=== PATIENT | male | born 1955 | race Caucasian/White ===

== ENCOUNTER 2018-09-30 10:45 | Inpatient (IN) | payer BC, SELFPAY ==
[2018-09-30] MEDS ORDERED: cefTRIAXone\\ROCEPHIN 1 GM VIAL ONE (11:22)
[2018-09-30] MEDS ORDERED: Sodium Chloride 0.9% 100 ML ONE (11:23)
[2018-09-30 11:34] LABS: Bilirubin Negative (Negative); Blood, Urine Moderate (Negative); Clarity CLOUDY (Clear); Glucose, Urine (Dipstick) Negative (Negative); Leukocyte Large (Negative); Nitrite Negative (Negative); Protein, Urine (Dipstick) 30 mg/dL (Neg-Trace); Specific Gravity, Urine 1.011 (1.002-1.036); Urobilinogen 0.2 mg/dL (0.2-1.0); pH, Urine 5.5 (5.0-9.0)
[2018-09-30 11:35] LABS: Bacteria/HPF None Seen HPF (None Seen); Hyaline Casts/LPF 0-3 HYALINE CAST LPF (0-3 Hyaline); Pathc Cast-AUWi Flag 0.87 (0-2.49); Squamous Epithelial 0-3 HPF (0-3)
[2018-09-30 11:44] LABS: Band 9 % (5-11); Hemoglobin 15.1 g/dL (14.0-18.0); Lymphocytes 7 % (21-51); MDiff Complete? YES; Mean Corpuscular HGB CONC 33.5 g/dL (32.0-36.0); Mean Corpuscular Hemoglobin 32.9 pg (27.0-31.0); Mean Corpuscular Volume 98.1 fL (78.0-98.0); Mean Platelet Volume 6.5 fL (7.4-10.4); Monocytes 4 % (0-10); Neutrophil 80 % (42-75); Platelet Count 361 thou/uL (130-400); RBC Distribution Width 12.1 % (11.5-14.5); White Blood Cell (WBC) Count 19.3 thou/uL (4.8-10.8)
[2018-09-30 11:50] LABS: ALT (SGPT) 38 U/L (8-55); AST (SGOT) 35 U/L (5-34); Albumin 3.9 g/dL (3.4-4.8); Alkaline Phosphatase 98 U/L (40-150); Anion Gap 16 mmol/L (10-20); BUN (Urea Nitrogen) 13 mg/dL (8.4-25.7); Bilirubin, Total 0.9 mg/dL (0.2-1.2); Calc. Creatinine Clearance 0 mL/min (70-130); Calcium 9.6 mg/dL (7.8-10.44); Carbon Dioxide 25 mmol/L (23-31); Chloride 96 mmol/L (98-107); Estimated GFR-MDRD 63; Globulin 3.6 g/dL (2.4-3.5); Glucose 145 mg/dL (80-115); Potassium 3.7 mmol/L (3.5-5.1); Protein, Total 7.5 g/dL (5.8-8.1); Sodium 133 mmol/L (136-145)
[2018-09-30] MEDS ORDERED: Senokot S 8.6-50 MG TAB PO PRN (12:50)
[2018-09-30] MEDS ORDERED: Ondansetron PF 4 MG/2 ML Vial IVP PRN (12:50)
[2018-09-30] MEDS ORDERED: Promethazine HCl 25 MG/ML VIAL IM/IV PRN (12:50)
[2018-09-30] MEDS ORDERED: Guaifenesin DM 100-10/5 ML UDCUP PO PRN (12:50)
--- NOTE | 2018-09-30 14:02 | CT ---
CT ABDOMEN AND PELVIS WITHOUT CONTRAST: Date: 09/30/18 PROVIDED CLINICAL HISTORY: Dysuria. FINDINGS: The visualized lung bases are free of significant opacity. Small gallstones are seen. There is a tiny, nonobstructing calculus present within each kidney. No additional urinary tract calc mary are evident. No evidence for hydronephrosis or hydroureter. There is bilateral perinephric fat st randing, as well as stranding about portions of each ureter. The urinary bladder is decompressed, tho ugh the urinary bladder wall appears somewhat thickened and there is subtle fat stranding about the u rinary bladder. The solid abdominal organs are suboptimally evaluated in the absence of IV contrast material, but dem onstrate an otherwise unremarkable unenhanced CT appearance. There is no bowel dilatation, additional inflammatory fat stranding, free fluid, or free air apparent . The osseous structures demonstrate no concerning osteoblastic or osteolytic lesions. IMPRESSION: 1. Bilateral perinephric fat stranding, periureteral fat stranding, and fat stranding about the urin dori bladder. Findings are suspicious for urinary tract infection and possibly pyelonephritis. 2. Tiny, nonobstructing renal calculi. 3. Cholelithiasis. POS: CLARKE
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
[2018-09-30 15:23] VITALS: BMI 30.9
[2018-09-30] MEDS: Acetaminophen 325 MG TAB PO PRN ×2 (15:32→20:18)
[2018-09-30] MEDS: Sodium Chloride 0.9% 1,000 ML IV SCH (15:34)
[2018-09-30] MEDS ORDERED: Vancomycin HCl 750 MG in Sodium Chloride 0.9% 250 ML 250 ML IVPB SCH (15:45)
[2018-09-30 17:10] LABS: Lactic Acid 2.1 mmol/L (0.5-2.2)
[2018-09-30] MEDS: Famotidine 20 MG TAB PO SCH (20:18)
[2018-09-30] MEDS ORDERED: Vancomycin HCl 1 GM in Sodium Chloride 0.9% 250 ML 300 ML IVPB SCH (21:00)
[2018-10-01] MEDS: Sodium Chloride 0.9% 1,000 ML IV SCH ×3 (00:21→19:54)
[2018-10-01] MEDS: Acetaminophen 325 MG TAB PO PRN ×5 (00:24→17:08)
[2018-10-01] MEDS ORDERED: Vancomycin HCl 1.75 GM in Sodium Chloride 0.9% 500 ML IVPB SCH (02:00)
[2018-10-01 04:24] LABS: #Lymphocytes 1.1 thou/uL (1.20-3.40); %Basophils 0.1 % (0.0-1.0); %Eosinophils 0.3 % (0.0-10.0); %Lymphocytes 8.9 % (21.0-51.0); %Neutrophils 82.7 % (42.0-75.0); Hemoglobin 12.1 g/dL (14.0-18.0); Mean Corpuscular HGB CONC 32.9 g/dL (32.0-36.0); Mean Corpuscular Hemoglobin 32.5 pg (27.0-31.0); Mean Corpuscular Volume 98.9 fL (78.0-98.0); Mean Platelet Volume 6.8 fL (7.4-10.4); Platelet Count 296 thou/uL (130-400); Red Blood Cell (RBC) Count 3.73 mill/uL (4.70-6.10)
[2018-10-01 04:31] LABS: Anion Gap 10 mmol/L (10-20); BUN (Urea Nitrogen) 11 mg/dL (8.4-25.7); Calc. Creatinine Clearance 129 mL/min (70-130); Calcium 8.3 mg/dL (7.8-10.44); Carbon Dioxide 27 mmol/L (23-31); Chloride 103 mmol/L (98-107); Estimated GFR-MDRD 83; Glucose 123 mg/dL (80-115); Potassium 3.7 mmol/L (3.5-5.1); Sodium 136 mmol/L (136-145)
[2018-10-01] MEDS: Famotidine 20 MG TAB PO SCH ×2 (08:07→19:52)
[2018-10-01] MEDS: Enoxaparin Sodium 40 MG/0.4 ML SYRINGE SC SCH (08:12)
--- NOTE | 2018-10-01 10:40 | PDOC.PN ---
- Subjective Encounter Start Date: 10/01/18 Encounter Start Time: 10:40 Subjective: had fever of 102 last night -: no sob or abd pain -: is able to void well per patient - Objective Resuscitation Status: Resuscitation Status FULL:Full Resuscitation MAR Reviewed: Yes Vital Signs & Weight: Vital Signs (12 hours) Temp Pulse Resp BP Pulse Ox 10/01/18 07:34 101.2 F H 61 20 134/77 91 L 10/01/18 05:08 99.6 F 10/01/18 02:52 99.4 F 10/01/18 00:00 102.7 F H 74 18 145/75 H Weight Weight 241 lb 6 oz I&O: 09/30/18 10/01/18 10/02/18 06:59 06:59 06:59 Intake Total 1850 Balance 1850 Result Diagrams: 10/01/18 03:51 10/01/18 03:51 Phys Exam - Physical Examination HEENT: PERRLA, moist MMs Neck: no JVD, supple Respiratory: no wheezing, no rales Cardiovascular: RRR, no significant murmur Gastrointestinal: soft, non-tender, positive bowel sounds Musculoskeletal: no edema, pulses present Neurological: non-focal, moves all 4 limbs Psychiatric: normal affect, A&O x 3 Dx/Plan (1) Bacteremia due to Escherichia coli Code(s): R78.81 - BACTEREMIA Status: Acute (2) Sepsis Code(s): A41.9 - SEPSIS, UNSPECIFIED ORGANISM Status: Acute Qualifiers: Sepsis type: Escherichia coli Qualified Code(s): A41.51 - Sepsis due to Escherichia coli [E. coli] (3) UTI (urinary tract infection) Status: Acute Qualifiers: Urinary tract infection type: acute cystitis Hematuria presence: without hematuria Qualified Code(s): N30.00 - Acute cystitis without hematuria (4) BPH (benign prostatic hyperplasia) Code(s): N40.0 - BENIGN PROSTATIC HYPERPLASIA WITHOUT LOWER URINRY TRACT SYMP Status: Suspected Qualifiers: Lower urinary tract symptom presence: symptoms present Lower urinary tract symptom detail: urinary frequency Qualified Code(s): N40.1 - Benign prostatic hyperplasia with lower urinary tract symptoms; R35.0 - Frequency of micturition (5) HTN (hypertension) Code(s): I10 - ESSENTIAL (PRIMARY) HYPERTENSION Status: Chronic Qualifiers: Hypertension type: essential hypertension Qualified Code(s): I10 - Essential (primary) hypertension - Plan await full sensitivities of cultures -: on ceftiaxone, dc vanc -: tmax of 102 last 24hrs -: likely has obstru uropathy from bph, psa is high normal -: continue iv fluids, echo and ekg * . Review of Systems - Medications/Allergies Allergies/Adverse Reactions: Allergies Allergy/AdvReac Type Severity Reaction Status Date / Time No Known Allergies Allergy Unverified 09/30/18 13:05 Medications: Current Medications Acetaminophen (Tylenol) 650 mg PO Q4H PRN PRN Reason: Headache/Fever/Mild Pain (1-3) Last Admin: 10/01/18 09:39 Dose: 650 mg Hydrocodone Bitart/Acetaminophen ([place] 5/325) 1 tab PO Q4H PRN PRN Reason: Moderate Pain (4-6) Enoxaparin Sodium (Lovenox) 40 mg SC 0900 [facility] Last Admin: 10/01/18 08:12 Dose: Not Given Famotidine (Pepcid) 20 mg PO BID [facility] Last Admin: 10/01/18 08:07 Dose: 20 mg Guaifenesin/Dextromethorphan (Robitussin Dm) 15 ml PO Q4H PRN PRN Reason: Cough Ceftriaxone Sodium 2 gm/ (Sodium Chloride) 100 mls @ 200 mls/hr IVPB 1200 CARL Sodium Chloride (Normal Saline 0.9%) 1,000 mls @ 100 mls/hr IV .Q10H [facility] Last Admin: 10/01/18 08:12 Dose: Not Given Miscellaneous Medication (Pharmacy To Dose) 1 each IVPB PRN PRN PRN Reason: . Ondansetron HCl (Zofran) 4 mg IVP Q6H PRN PRN Reason: Nausea/Vomiting Promethazine HCl (Phenergan) 25 mg IM/IV Q6H PRN PRN Reason: chills Senna/Docusate Sodium (Senokot S) 2 tab PO BID PRN PRN Reason: Constipation
[2018-10-01] MEDS: cefTRIAXone\\ROCEPHIN 2 GM in Sodium Chloride 0.9% 100 ML IVPB SCH (11:02)
[2018-10-01] MEDS: HYDROcodone/Acetaminophen 5/325 mg Tablet PO PRN (19:52)
[2018-10-02] MEDS: HYDROcodone/Acetaminophen 5/325 mg Tablet PO PRN ×3 (00:31→11:13)
[2018-10-02] MEDS: Sodium Chloride 0.9% 1,000 ML IV SCH ×2 (00:34→05:30)
--- NOTE | 2018-10-02 03:29 | CON ---
DATE OF CONSULTATION: 10/01/2018 CHIEF COMPLAINT: Difficulty voiding, dysuria. HISTORY OF PRESENT ILLNESS: Mr. Wild was admitted to [facility] on 09/30/2018. He is a 63-year-old gentleman who presents with a 2-week history of intermittent fevers and chills. He has had progressive difficulty voiding with dysuria. He has since been admitted to the hospital, treated with IV antibiotics, and improved significantly. Urine culture has been obtained and demons trates E. coli, although the resistance pattern has not been determined yet. The patient denies any prior urologic problems. He has no prior urologic surgery. He feels significantly better than he di d when he was admitted. CT scan has been performed and demonstrates inflammatory changes along the u rinary tract in both the right and left side and a thickened bladder wall without any evidence of inc reased postvoid residual. PAST MEDICAL HISTORY: Hypertension. CHRONIC MEDICATIONS: Lisinopril, Lasix. ALLERGIES: No known drug allergies. SOCIAL HISTORY: Nonsmoker. Denies excessive alcohol use. FAMILY HISTORY: Noncontributory. REVIEW OF SYSTEMS: Respiratory: No shortness of breath. Cardiovascular: No chest pain or palpitat ions. Gastrointestinal: Denies chronic constipation, diarrhea. Genitourinary: Please see history of present illness. PHYSICAL EXAMINATION: GENERAL: This is a healthy appearing gentleman in no distress. HEENT: Normocephalic, atraumatic. NECK: Supple without masses. CHEST: Clear to auscultation. CARDIOVASCULAR: Regular rate and rhythm. ABDOMEN: Soft, nontender, no palpable masses. Liver and spleen are palpable. No abdominal tenderne ss. LABORATORY STUDIES: Urine culture final results pending consistent with E. coli. CT scan demonstrat es inflammatory changes without evidence of upper urinary tract obstruction. He does have a thickene d bladder wall without large postvoid residual. IMPRESSION: Prostatitis, most likely diagnosis. The patient seems to be emptying his bladder determined by his CT scan. There is no evidence of obstruction. As such, I would recommend a 6-week course of oral antibiotics based on his culture results. PSA result was obtained and is normal at 3 .46. No evidence of prostate cancer.
[2018-10-02] MEDS: Enoxaparin Sodium 40 MG/0.4 ML SYRINGE SC SCH (07:21)
[2018-10-02] MEDS: Famotidine 20 MG TAB PO SCH (07:21)
[2018-10-02] MEDS ORDERED: Sodium Chloride 0.9% 1,000 ML IV SCH (08:15)
--- NOTE | 2018-10-02 08:50 | EKG ---
Test Reason : Blood Pressure : / mmHG Vent. Rate : 063 BPM Atrial Rate : 063 BPM P-R Int : 136 ms QRS Dur : 110 ms QT Int : 434 ms P-R-T Axes : 020 021 035 degrees QTc Int : 444 ms Normal sinus rhythm Normal ECG 30-SEP-2018 11:11, (Unconfirmed) Confirmed by DR. Larisa BERNAL ([id number]) on 10/02/2018 8:50:06 AM Referred By: GABY Confirmed By:DR. Larisa BERNAL
[2018-10-02] MEDS: cefTRIAXone\\ROCEPHIN 2 GM in Sodium Chloride 0.9% 100 ML IVPB SCH (11:08)
[2018-10-02 12:10] VITALS: BP 154/82; TEMP 100
--- NOTE | 2018-10-02 13:09 | PDOC.PN ---
- Subjective Encounter Start Date: 10/02/18 Encounter Start Time: 13:07 - Objective Resuscitation Status: Resuscitation Status FULL:Full Resuscitation Vital Signs & Weight: Vital Signs (12 hours) Temp Pulse Resp BP Pulse Ox 10/02/18 12:09 100.0 F H 58 L 20 154/82 H 93 L 10/02/18 07:32 99.3 F 61 18 148/88 H 95 10/02/18 04:00 98.8 F 61 20 146/83 H 92 L Weight Weight 241 lb 6 oz I&O: 10/01/18 10/02/18 10/03/18 06:59 06:59 06:59 Intake Total 1850 1300 Balance 1850 1300 Result Diagrams: 10/01/18 03:51 10/01/18 03:51 Dx/Plan (1) Sepsis Code(s): A41.9 - SEPSIS, UNSPECIFIED ORGANISM Status: Acute Qualifiers: Sepsis type: Escherichia coli Qualified Code(s): A41.51 - Sepsis due to Escherichia coli [E. coli] Comment: Pansensitive ecoli, except Ampicillin. Responding well to Ceftrioxone (2) Bacteremia due to Escherichia coli Code(s): R78.81 - BACTEREMIA Status: Acute (3) UTI (urinary tract infection) Status: Acute Qualifiers: Urinary tract infection type: acute cystitis Hematuria presence: without hematuria Qualified Code(s): N30.00 - Acute cystitis without hematuria (4) HTN (hypertension) Code(s): I10 - ESSENTIAL (PRIMARY) HYPERTENSION Status: Chronic Qualifiers: Hypertension type: essential hypertension Qualified Code(s): I10 - Essential (primary) hypertension - Plan cont current plan of care, plan discussed w/ family, DVT proph w/lovenox, DVT proph w/SCDs * .
== END 2018-10-02 16:11 | disposition home or self-care (01) | DRG 872 ==
LOC: ERS 10:45 → T4-A 14:10
PROVIDERS: ADMIT Internal Medicine; ATTEND Internal Medicine
DX: A41.51 Sepsis due to Escherichia coli [E. coli] (principal); N30.00 Acute cystitis without hematuria; N41.9 Inflammatory disease of prostate, unspecified; I10 Essential (primary) hypertension; R94.31 Abnormal electrocardiogram [ECG] [EKG]; N40.1 Benign prostatic hyperplasia with lower urinary tract symptoms; R35.0 Frequency of micturition; Z79.899 Other long term (current) drug therapy
CPT/HCPCS: 36415; 74176; 80048; 80053; 81003; 81015; 82533; 83605; 84153; 85025; 87040; 87077; 87086; 87149; 87186; 93005; 93010; 93306; 96361; 96365; J0696; J1650; J3370; J7050

== ENCOUNTER 2021-03-27 08:25 | Inpatient (IN) | payer MEDICARE, OTHER ==
[2021-03-27] MEDS ORDERED: Aspirin Chewable 81 MG TAB ONE (08:50)
[2021-03-27 09:00] LABS: #Basophils 0.1 thou/uL (0.0-0.2); #Eosinphils 0.1 thou/uL (0.0-0.7); #Lymphocytes 1.6 thou/uL (1.20-3.40); #Monocytes 0.5 thou/uL (0.11-0.59); #Neutrophils 4.5 thou/uL (1.40-6.50); %Basophils 0.8 % (0.0-1.0); %Eosinophils 1.5 % (0.0-10.0); %Monocytes 7.6 % (0.0-10.0); %Neutrophils 66.2 % (42.0-75.0); Mean Corpuscular HGB CONC 32.4 g/dL (32.0-36.0); Mean Corpuscular Hemoglobin 31.3 pg (27.0-31.0); Mean Corpuscular Volume 96.3 fL (78.0-98.0); Mean Platelet Volume 7.7 fL (7.4-10.4); Platelet Count 217 thou/uL (130-400); RBC Distribution Width 12.8 % (11.5-14.5); Red Blood Cell (RBC) Count 4.47 mill/uL (4.70-6.10); White Blood Cell (WBC) Count 6.8 thou/uL (4.8-10.8)
[2021-03-27 09:22] LABS: ALT (SGPT) 24 U/L (8-55); AST (SGOT) 28 U/L (5-34); Albumin 4.1 g/dL (3.4-4.8); Alkaline Phosphatase 48 U/L (40-110); Anion Gap 15 mmol/L (10-20); BUN (Urea Nitrogen) 11 mg/dL (8.4-25.7); Calc. Creatinine Clearance 0 mL/min (70-130); Calcium 9.6 mg/dL (7.8-10.44); Carbon Dioxide 21 mmol/L (23-31); Chloride 103 mmol/L (98-107); Globulin 2.4 g/dL (2.4-3.5); Glucose 104 mg/dL (80-115); Lipase 16 U/L (8-78); Protein, Total 6.5 g/dL (5.8-8.1); Sodium 135 mmol/L (136-145)
[2021-03-27 09:51] LABS: CKMB 2.1 ng/mL (0-6.6)
[2021-03-27] MEDS ORDERED: Diltiazem 125 MG/25 ML ONE (10:51)
[2021-03-27] MEDS ORDERED: HYDROcodone/Acetaminophen 5/325 mg Tablet PO PRN (11:55)
[2021-03-27] MEDS ORDERED: Acetaminophen 325 MG TAB PO PRN (11:55)
[2021-03-27] MEDS ORDERED: Senokot S 8.6-50 MG TAB PO PRN (11:55)
[2021-03-27 12:09] LABS: Troponin I 0.037 ng/mL (< 0.028)
[2021-03-27 13:23] VITALS: BMI 34.4
[2021-03-27] MEDS: Furosemide 40 MG/4 ML VIAL SLOW IVP SCH (14:24)
[2021-03-27] MEDS: Diltiazem 125 MG in Sodium Chloride 0.9% 100 ML IVPB SCH (16:59)
[2021-03-27] MEDS ORDERED: Carvedilol 6.25 MG TAB PO SCH (17:00)
[2021-03-27] MEDS: Enoxaparin Sodium 120 MG/0.8 ML SYRINGE SC SCH (21:01)
[2021-03-27] MEDS ORDERED: Sodium Chloride 0.9% 500 ML IVPB SCH (22:30)
[2021-03-27] MEDS: Digoxin 0.5 MG/2 ML AMP SLOW IVP SCH (22:30)
[2021-03-28 00:26] LABS: SARS-CoV-2 PCR NAA for Saliva Not Detected (NotDetected)
[2021-03-28 04:35] LABS: #Eosinphils 0.2 thou/uL (0.0-0.7); #Lymphocytes 1.7 thou/uL (1.20-3.40); #Monocytes 0.6 thou/uL (0.11-0.59); #Neutrophils 3.8 thou/uL (1.40-6.50); %Basophils 0.6 % (0.0-1.0); %Lymphocytes 26.8 % (21.0-51.0); %Monocytes 9.9 % (0.0-10.0); %Neutrophils 59.7 % (42.0-75.0); Hemoglobin 13.7 g/dL (14.0-18.0); Mean Corpuscular HGB CONC 32.2 g/dL (32.0-36.0); Mean Corpuscular Hemoglobin 31.2 pg (27.0-31.0); Mean Corpuscular Volume 96.9 fL (78.0-98.0); Platelet Count 147 thou/uL (130-400); White Blood Cell (WBC) Count 6.4 thou/uL (4.8-10.8)
[2021-03-28] MEDS: Furosemide 40 MG/4 ML VIAL SLOW IVP SCH ×2 (04:56→13:28)
[2021-03-28] MEDS: Digoxin 0.5 MG/2 ML AMP SLOW IVP SCH ×2 (04:56→11:39)
[2021-03-28 05:05] LABS: Anion Gap 13 mmol/L (10-20); BUN (Urea Nitrogen) 13 mg/dL (8.4-25.7); Calc. Creatinine Clearance 143 mL/min (70-130); Calcium 9.6 mg/dL (7.8-10.44); Carbon Dioxide 26 mmol/L (23-31); Chloride 104 mmol/L (98-107); Glucose 98 mg/dL (80-115); Potassium 3.3 mmol/L (3.5-5.1); Sodium 140 mmol/L (136-145)
[2021-03-28] MEDS: Aspirin Chewable 81 MG TAB PO SCH (09:18)
[2021-03-28] MEDS: Enoxaparin Sodium 120 MG/0.8 ML SYRINGE SC SCH ×2 (09:19→21:08)
[2021-03-28] MEDS: Carvedilol 6.25 MG TAB PO SCH ×3 (09:19→21:08)
[2021-03-28 11:40] LABS: SARS-CoV-2 IgG Ab Non-Reactive (NonReactive); SARS-CoV-2 IgG Index 0.02 S/CO (< 1.40)
[2021-03-28] MEDS: Diltiazem 125 MG in Sodium Chloride 0.9% 100 ML IVPB SCH (22:00)
[2021-03-29] MEDS: Furosemide 40 MG/4 ML VIAL SLOW IVP SCH ×2 (05:47→15:13)
[2021-03-29] MEDS ORDERED: Diltiazem 125 MG in Sodium Chloride 0.9% 100 ML IVPB SCH (05:58)
[2021-03-29] MEDS ORDERED: Communication Order-Pharmacy FS SCH (06:30)
[2021-03-29] MEDS: Amiodarone 200 MG TAB PO SCH ×2 (08:24→20:18)
[2021-03-29] MEDS: Carvedilol 6.25 MG TAB PO SCH ×2 (08:24→20:18)
[2021-03-29] MEDS: Aspirin Chewable 81 MG TAB PO SCH (08:25)
[2021-03-29] MEDS: Digoxin 0.25 MG TAB PO SCH (08:25)
[2021-03-29] MEDS ORDERED: Iopamidol 370 76% 100 ML VIAL ONE (08:49)
[2021-03-29] MEDS ORDERED: Lidocaine 1% (PF) 30 ML VIAL ONE (11:15)
[2021-03-29] MEDS ORDERED: Nitroglycerin 100MG/250ML BOT 250 ML ONE (11:46)
[2021-03-29] MEDS ORDERED: Heparin 10,000 UNITS/ 10 ML VIAL ONE (11:46)
[2021-03-29] MEDS ORDERED: Verapamil 5 MG/2 ML VIAL ONE (11:46)
[2021-03-29] MEDS ORDERED: Midazolam HCl 2 mg/2 ml Vial ONE (11:50)
[2021-03-29] MEDS ORDERED: Fentanyl 100 MCG/2 ML VIAL ONE (11:50)
[2021-03-29] MEDS ORDERED: Adenosine 6 MG/2 ML VIAL ONE (12:12)
[2021-03-30] MEDS: Furosemide 40 MG/4 ML VIAL SLOW IVP SCH ×2 (05:24→15:55)
[2021-03-30] MEDS ORDERED: Diltiazem 125 MG in Sodium Chloride 0.9% 100 ML IVPB SCH (07:11)
[2021-03-30] MEDS ORDERED: Rivaroxaban 10 MG TAB PO SCH (09:00)
[2021-03-30] MEDS: Carvedilol 6.25 MG TAB PO SCH (09:04)
[2021-03-30] MEDS: Amiodarone 200 MG TAB PO SCH (09:04)
[2021-03-30] MEDS: Digoxin 0.25 MG TAB PO SCH (09:04)
[2021-03-30 16:53] VITALS: BP 115/79; TEMP 98.6
== END 2021-03-30 17:43 | disposition home or self-care (01) | DRG 286 ==
LOC: ERS 08:25 → ERHOLD 11:22 → 2NO 13:11 → OBSVTOIN 15:20
PROVIDERS: ADMIT Family Medicine; ATTEND Internal Medicine
PROC: 4A023N7 Measurement of Cardiac Sampling and Pressure, Left Heart, Percutaneous Approach (ICD-10-PCS; principal; 2021-03-29)
PROC: B2111ZZ Fluoroscopy of Multiple Coronary Arteries using Low Osmolar Contrast (ICD-10-PCS; 2021-03-29)
DX: I48.19 Other persistent atrial fibrillation (principal); I50.21 Acute systolic (congestive) heart failure; K21.9 Gastro-esophageal reflux disease without esophagitis; I11.0 Hypertensive heart disease with heart failure; N40.1 Benign prostatic hyperplasia with lower urinary tract symptoms; I42.9 Cardiomyopathy, unspecified; R94.31 Abnormal electrocardiogram [ECG] [EKG]; R35.0 Frequency of micturition; Z20.822 Contact with and (suspected) exposure to COVID-19; Z86.16 Personal history of COVID-19; Z98.890 Other specified postprocedural states
CPT/HCPCS: 36415; 71045; 76942; 80048; 80053; 82553; 83690; 83880; 84443; 84484; 85025; 86769; 87635; 93005; 93306; 93458; 93798; 94760; 96374; 96375; 96376; 99152; 99153; G0378; J0153; J1160; J1644; J1650; J1940; J2001; J2250; J3010; J3490; J7030; Q9967; U0003; U0005

== ENCOUNTER 2021-05-04 11:33 | Outpatient (CLI) | payer MEDICARE ==
[2021-05-04 12:43] LABS: #Basophils 0.1 10x3/uL (0.0-0.2); #Eosinphils 0.2 10x3/uL (0.0-0.5); #Monocytes 0.6 10x3/uL (0.0-1.1); #Neutrophils 4.2 10x3/uL (1.5-8.4); %Basophils 0.8 % (0.0-2.0); %Eosinophils 2.6 % (0.0-6.0); %Lymphocytes 24.2 % (18.0-47.0); %Monocytes 9.2 % (0.0-10.0); %Neutrophils 62.7 % (40.0-75.0); Hemoglobin 15.3 g/dL (13.5-17.5); Mean Corpuscular HGB CONC 34.5 g/dL (32.0-36.0); Mean Corpuscular Hemoglobin 31.2 pg (27.0-33.0); Mean Corpuscular Volume 90.4 fl (81.2-95.1); Platelet Count 194 10x3/uL (150-450); RBC Distribution Width 14.6 % (11.5-14.5); White Blood Cell (WBC) Count 6.6 10x3/uL (3.5-10.5)
[2021-05-04 13:50] LABS: Anion Gap 15 mmol/L (10-20); BUN (Urea Nitrogen) 9 mg/dL (8.4-25.7); Calc. Creatinine Clearance 0 mL/min (70-130); Calcium 9.6 mg/dL (7.8-10.44); Carbon Dioxide 22 mmol/L (23-31); Chloride 108 mmol/L (98-107); Glucose 136 mg/dL (80-115); Potassium 4.4 mmol/L (3.5-5.1); Sodium 141 mmol/L (136-145)
[2021-05-04 19:32] LABS: SARS-CoV-2 PCR by NAA Not Detected (NotDetected)
== END 2021-05-04 11:34 | disposition home or self-care (01) ==
LOC: LABBT 11:33
PROVIDERS: ATTEND Internal Medicine Cardiovascular Disease
DX: Z01.812 Encounter for preprocedural laboratory examination (principal); Z20.822 Contact with and (suspected) exposure to COVID-19
CPT/HCPCS: 80048; 85025; U0003; U0005

== ENCOUNTER 2021-05-07 06:09 | Day surgery (SDC) | payer MEDICARE ==
[2021-05-06 11:16] VITALS: BMI 30.2
[2021-05-07] MEDS ORDERED: PROPOFOL 40 ML ONE (07:14)
== END 2021-05-07 12:25 | disposition home or self-care (01) ==
LOC: CCL 06:09
PROVIDERS: ATTEND Internal Medicine Cardiovascular Disease
PROC: 5A2204Z Restoration of Cardiac Rhythm, Single (ICD-10-PCS; principal; 2021-05-07)
DX: I48.19 Other persistent atrial fibrillation (principal); I42.8 Other cardiomyopathies; I11.0 Hypertensive heart disease with heart failure; I50.22 Chronic systolic (congestive) heart failure; K21.9 Gastro-esophageal reflux disease without esophagitis; Z87.891 Personal history of nicotine dependence; Z79.01 Long term (current) use of anticoagulants; Z79.899 Other long term (current) drug therapy; Z88.8 Allergy status to other drugs, medicaments and biological substances
CPT/HCPCS: 92960; 93005; 93010; J2704

== ENCOUNTER 2022-04-28 09:10 | Outpatient (CLI) | payer MEDICARE ==
[2022-04-28 10:09] LABS: Anion Gap 16 mmol/L (10-20); BUN (Urea Nitrogen) 12 mg/dL (8.4-25.7); Calc. Creatinine Clearance 0 mL/min (70-130); Calcium 9.6 mg/dL (7.8-10.44); Carbon Dioxide 24 mmol/L (23-31); Chloride 105 mmol/L (98-107); Glucose 111 mg/dL (80-115); Sodium 141 mmol/L (136-145)
== END 2022-04-28 09:11 | disposition home or self-care (01) ==
LOC: LABBT 09:10
PROVIDERS: ATTEND Student in an Organized Health Care Education/Training Program
DX: Z01.812 Encounter for preprocedural laboratory examination (principal); C80.1 Malignant (primary) neoplasm, unspecified; R22.1 Localized swelling, mass and lump, neck; Z87.891 Personal history of nicotine dependence; Z20.822 Contact with and (suspected) exposure to COVID-19
CPT/HCPCS: 80048; U0003; U0005

== ENCOUNTER 2022-04-29 09:30 | Outpatient (CLI) | payer MEDICARE | END 2022-04-29 09:31 | disposition home or self-care (01) | LOC: PET 09:30 | PROVIDERS: ATTEND Internal Medicine Hematology & Oncology | DX: C10.9 Malignant neoplasm of oropharynx, unspecified (principal); C77.0 Secondary and unspecified malignant neoplasm of lymph nodes of head, face and neck; D72.818 Other decreased white blood cell count; D69.59 Other secondary thrombocytopenia | CPT/HCPCS: 78815; A9552 ==

== ENCOUNTER 2022-05-03 05:33 | Day surgery (SDC) | payer MEDICARE ==
[2022-04-29 13:15] VITALS: BMI 30.2
[2022-05-03] MEDS ORDERED: Propofol 1,000 MG/100 ML VIAL IV ONE (06:47)
[2022-05-03] MEDS ORDERED: fentaNYL Citrate/PF 100 MCG/2 ML SYRINGE ONE (06:47)
[2022-05-03] MEDS ORDERED: Dexmedetomidine 200 MCG/2 ML VIAL ONE (06:47)
[2022-05-03] MEDS ORDERED: EPINEPHrine 1 MG/ML AMP ONE (07:14)
[2022-05-03] MEDS ORDERED: Ondansetron PF 4 MG/2 ML Vial ONE (07:38)
[2022-05-03] MEDS ORDERED: Lidocaine 1% PF 5 ML VIAL ONE (07:38)
[2022-05-03] MEDS ORDERED: PROPOFOL 200 MG/20 ML VIAL ONE (07:38)
[2022-05-03] MEDS ORDERED: Glycopyrrolate 0.2 MG/ML 5 ML SYRINGE ONE (07:38)
[2022-05-03] MEDS ORDERED: Dexamethasone 20 MG/5 ML VIAL ONE (07:38)
[2022-05-03] MEDS ORDERED: PHENYLEPHRINE-NS 100 MCG/ML 10 ML SYRINGE ONE (07:38)
[2022-05-03] MEDS ORDERED: Oxymetazoline HCl 0.05% (30 ML BOT) ONE (08:05)
[2022-05-03] MEDS ORDERED: HYDROcodone/Acetaminophen 5/325 mg Tablet ONE (10:18)
== END 2022-05-03 11:10 | disposition home or self-care (01) ==
LOC: SDC 05:33
PROVIDERS: ATTEND Student in an Organized Health Care Education/Training Program
PROC: 0CBM8ZX Excision of Pharynx, Via Natural or Artificial Opening Endoscopic, Diagnostic (ICD-10-PCS; principal; 2022-05-03)
PROC: 0W963ZX Drainage of Neck, Percutaneous Approach, Diagnostic (ICD-10-PCS; 2022-05-03)
DX: J35.8 Other chronic diseases of tonsils and adenoids (principal); J03.90 Acute tonsillitis, unspecified; Z87.891 Personal history of nicotine dependence; Z79.01 Long term (current) use of anticoagulants; Z79.899 Other long term (current) drug therapy; Z88.8 Allergy status to other drugs, medicaments and biological substances
CPT/HCPCS: 88173; 88305; J0171; J1100; J2405; J2704

== ENCOUNTER → 2022-05-12 | Day surgery (SDC) | payer MEDICARE ==
[~2022-05-12] MED LIST: Lidocaine 1% PF 5 ML VIAL ONE; Sodium Bicarbonate 2.5 MEQ/5 ML VIAL ONE
== END | disposition home or self-care (01) ==
LOC: ULT 12:33
PROVIDERS: ATTEND Student in an Organized Health Care Education/Training Program
PROC: 07923ZX Drainage of Left Neck Lymphatic, Percutaneous Approach, Diagnostic (ICD-10-PCS; principal; 2022-05-12)
DX: C80.1 Malignant (primary) neoplasm, unspecified (principal); R59.0 Localized enlarged lymph nodes; Z87.891 Personal history of nicotine dependence; Z88.8 Allergy status to other drugs, medicaments and biological substances
CPT/HCPCS: 10005; 88173; 88305

== ENCOUNTER 2022-06-16 08:45 | Outpatient (CLI) | payer MEDICARE ==
[2022-06-16 09:50] LABS: Hemoglobin 14.8 g/dL (13.5-17.5)
[2022-06-16 10:12] LABS: Anion Gap 15 mmol/L (10-20); BUN (Urea Nitrogen) 10 mg/dL (8.4-25.7); Calc. Creatinine Clearance 0 mL/min (70-130); Calcium 9.5 mg/dL (7.8-10.44); Carbon Dioxide 23 mmol/L (23-31); Chloride 106 mmol/L (98-107); Estimated GFR 97; Glucose 107 mg/dL (80-115); Potassium 4.3 mmol/L (3.5-5.1); Sodium 140 mmol/L (136-145)
== END 2022-06-16 08:46 | disposition home or self-care (01) ==
LOC: LABBT 08:45
PROVIDERS: ATTEND Student in an Organized Health Care Education/Training Program
DX: Z01.812 Encounter for preprocedural laboratory examination (principal); C80.1 Malignant (primary) neoplasm, unspecified; R22.1 Localized swelling, mass and lump, neck; Z87.891 Personal history of nicotine dependence; Z20.822 Contact with and (suspected) exposure to COVID-19
CPT/HCPCS: 80048; 85014; 85018; 87811

== ENCOUNTER 2022-06-16 09:00 | Observation (INO) | payer MEDICARE ==
[2022-06-20 10:47] VITALS: BMI 30.2
[2022-06-21] MEDS ORDERED: Bacitracin Zinc Ointment 30 gm TUBE ONE (08:24)
[2022-06-21] MEDS ORDERED: Xylocaine 1% w/ Epi 1:100K 10 ML VIAL ONE (08:24)
[2022-06-21] MEDS ORDERED: SUGAMMADEX SODIUM 200 MG/2 ML VIAL ONE (08:44)
[2022-06-21] MEDS ORDERED: fentaNYL Citrate/PF 100 MCG/2 ML SYRINGE ONE (08:44)
[2022-06-21] MEDS ORDERED: Famotidine/PF 20 mg/2ml Vial ONE (08:44)
[2022-06-21] MEDS ORDERED: CEFAZOLIN 2 GM VIAL ONE (08:45)
[2022-06-21] MEDS ORDERED: Sodium Chloride 0.9% 100 ML ONE (08:45)
[2022-06-21] MEDS ORDERED: PROPOFOL 200 MG/20 ML VIAL ONE (08:53)
[2022-06-21] MEDS ORDERED: Ondansetron PF 4 MG/2 ML Vial ONE (08:53)
[2022-06-21] MEDS ORDERED: Succinylcholine 200 MG/10 ml SYRINGE FS ONE (08:53)
[2022-06-21] MEDS ORDERED: Lidocaine 1% PF 5 ML VIAL ONE (08:53)
[2022-06-21] MEDS ORDERED: Glycopyrrolate 0.2 MG/ML 5 ML SYRINGE ONE (08:53)
[2022-06-21] MEDS ORDERED: Dexamethasone 20 MG/5 ML VIAL ONE (08:53)
[2022-06-21] MEDS ORDERED: Ketorolac Tromethamine 30 MG/ML VIAL ONE (08:53)
[2022-06-21] MEDS ORDERED: Phenylephrine 10 MG/ML VIAL ONE (08:53)
[2022-06-21] MEDS ORDERED: ePHEDrine 50 MG/ML VIAL ONE (08:53)
[2022-06-21] MEDS ORDERED: Metoclopramide HCl 10 MG/2 ML VIAL ONE (08:53)
[2022-06-21] MEDS ORDERED: Ondansetron HCl/PF 4 MG/2 ML Vial IVP PRN (12:16)
[2022-06-21] MEDS ORDERED: Promethazine HCl 25 MG/ML VIAL IM PRN (12:16)
[2022-06-21] MEDS ORDERED: Promethazine HCl 25 MG/ML VIAL IVPB PRN (12:16)
[2022-06-21] MEDS ORDERED: Meperidine HCl/PF 25 MG/ML VIAL SLOW IVP PRN (12:16)
[2022-06-21] MEDS ORDERED: Oxymetazoline HCl 0.05% (30 ML BOT) ONE (12:29)
[2022-06-21] MEDS ORDERED: Fentanyl 100 MCG/2 ML VIAL ONE (13:13)
[2022-06-21] MEDS ORDERED: Ondansetron PF 4 MG/2 ML Vial IVP PRN (14:25)
[2022-06-21] MEDS: CEFAZOLIN 1 GM in Sodium Chloride 0.9% 100 ML IVPB SCH (17:11)
[2022-06-21] MEDS: Lisinopril 10 MG TAB PO SCH ×2 (17:11→20:47)
[2022-06-21] MEDS: Lactated Ringer's 1,000 ML IV SCH (19:00)
[2022-06-21] MEDS: HYDROcodone/Acetaminophen 5/325 mg Tablet PO PRN (19:41)
[2022-06-21] MEDS: Morphine 4 MG/ML VIAL SLOW IVP PRN (20:53)
[2022-06-22 00:18] VITALS: TEMP 98.2
[2022-06-22] MEDS: CEFAZOLIN 1 GM in Sodium Chloride 0.9% 100 ML IVPB SCH ×2 (00:40→08:09)
[2022-06-22] MEDS: HYDROcodone/Acetaminophen 5/325 mg Tablet PO PRN ×2 (01:45→08:09)
[2022-06-22] MEDS: Lactated Ringer's 1,000 ML IV SCH (03:50)
[2022-06-22] MEDS: Morphine 4 MG/ML VIAL SLOW IVP PRN (04:45)
[2022-06-22] MEDS: Lisinopril 10 MG TAB PO SCH (08:10)
[2022-06-22 08:40] VITALS: BP 134/77
[2022-06-24] MEDS ORDERED: Flecainide 50 MG TAB PO SCH (09:00)
[2022-06-24] MEDS ORDERED: Carvedilol 6.25 MG TAB PO SCH (09:00)
[2022-06-24] MEDS ORDERED: Furosemide 20 MG TAB PO SCH (09:00)
== END 2022-06-22 09:18 | disposition home or self-care (01) ==
LOC: SURG A 06-21 06:58 → INTOOBSV 06-21 06:58 → EDSTATUS 06-21 09:00 → SJJU 06-21 14:24
PROVIDERS: ADMIT Student in an Organized Health Care Education/Training Program; ATTEND Student in an Organized Health Care Education/Training Program
PROC: 0JB50ZZ Excision of Left Neck Subcutaneous Tissue and Fascia, Open Approach (ICD-10-PCS; principal; 2022-06-21)
DX: C49.0 Malignant neoplasm of connective and soft tissue of head, face and neck (principal); R59.0 Localized enlarged lymph nodes; I10 Essential (primary) hypertension; I48.91 Unspecified atrial fibrillation; Z87.891 Personal history of nicotine dependence; Z79.01 Long term (current) use of anticoagulants; Z79.899 Other long term (current) drug therapy; Z88.8 Allergy status to other drugs, medicaments and biological substances
CPT/HCPCS: 21557; 96365; 96366; 96375; 96376; C1713; C1776; G0378 ×2; 88184; 88307; 88323; J0690; J1100; J1885; J2270; J2370; J2405; J2704; J2765; J3010; J3490; S0028

== ENCOUNTER 2022-07-19 08:00 | Outpatient (CLI) | payer MEDICARE | END 2022-07-19 08:01 | disposition home or self-care (01) | LOC: PET 08:00 | PROVIDERS: ATTEND Internal Medicine Hematology & Oncology | DX: C09.0 Malignant neoplasm of tonsillar fossa (principal); D72.818 Other decreased white blood cell count; D69.59 Other secondary thrombocytopenia | CPT/HCPCS: 78816; A9552 ==

== ENCOUNTER 2022-07-20 09:27 | Outpatient (CLI) | payer MEDICARE ==
[2022-07-20] MEDS ORDERED: Magnevist 469MG/ML 20 ML VIAL ONE (14:34)
== END 2022-07-20 09:28 | disposition home or self-care (01) ==
LOC: MRI 09:27
PROVIDERS: ATTEND Internal Medicine Hematology & Oncology
DX: C09.0 Malignant neoplasm of tonsillar fossa (principal); D72.818 Other decreased white blood cell count; D69.59 Other secondary thrombocytopenia
CPT/HCPCS: 70553; A9579

== ENCOUNTER 2022-12-07 10:55 | Outpatient (CLI) | payer MEDICARE, OTHER ==
[~2022-12-07 10:55] MED LIST changes: -Lidocaine 1% PF 5 ML VIAL ONE; +Magnevist 469MG/ML 20 ML VIAL ONE; -Sodium Bicarbonate 2.5 MEQ/5 ML VIAL ONE
== END 2022-12-07 10:56 | disposition home or self-care (01) ==
LOC: MRI 10:55
PROVIDERS: ATTEND Radiology Radiation Oncology
DX: C43.4 Malignant melanoma of scalp and neck (principal)
CPT/HCPCS: 70553

== ENCOUNTER 2022-12-28 09:02 | Outpatient (CLI) | payer MEDICARE | END 2022-12-28 09:03 | disposition home or self-care (01) | LOC: BICRAD 09:02 | PROVIDERS: ATTEND Internal Medicine Hematology & Oncology | DX: R05.1 Acute cough (principal); C09.0 Malignant neoplasm of tonsillar fossa; C43.4 Malignant melanoma of scalp and neck; D72.818 Other decreased white blood cell count; D69.59 Other secondary thrombocytopenia | CPT/HCPCS: 71046 ==

== ENCOUNTER 2023-02-02 14:02 | Inpatient (IN) | payer MEDICARE, OTHER ==
[2023-02-02] MEDS ORDERED: Acetaminophen 500 MG TAB ONE (14:53)
[2023-02-02 14:57] LABS: Hemoglobin 15.6 g/dL (14.0-18.0); Mean Corpuscular HGB CONC 33.8 g/dL (32.0-36.0); Mean Corpuscular Hemoglobin 32.1 pg (27.0-31.0); Mean Platelet Volume 7.3 fL (7.4-10.4); Platelet Count 120 10x3/uL (130-400); RBC Distribution Width 13.7 % (11.5-14.5); Red Blood Cell (RBC) Count 4.86 mill/uL (4.70-6.10); White Blood Cell (WBC) Count 11.5 10x3/uL (4.8-10.8)
[2023-02-02 15:19] LABS: ALT (SGPT) 18 U/L (8-55); AST (SGOT) 23 U/L (5-34); Albumin 4.1 g/dL (3.4-4.8); Alkaline Phosphatase 76 U/L (40-110); Anion Gap 17 mmol/L (10-20); BUN (Urea Nitrogen) 11 mg/dL (8.4-25.7); Bilirubin, Total 1.9 mg/dL (0.2-1.2); Calc. Creatinine Clearance 0 mL/min (70-130); Calcium 9.3 mg/dL (7.8-10.44); Carbon Dioxide 20 mmol/L (23-31); Chloride 98 mmol/L (98-107); Estimated GFR 95; Glucose 136 mg/dL (80-115); Potassium 3.8 mmol/L (3.5-5.1); Protein, Total 7.1 g/dL (5.8-8.1); Sodium 131 mmol/L (136-145)
[2023-02-02 15:22] LABS: Band 7 % (5-11); Lymphocytes 6 % (21-51); MDiff Complete? YES; Monocytes 9 % (0-10); Neutrophil 76 % (42-75); Platelet Morphology Comment Appears Decreased; Polychromasia SLIGHT = 2-3 cells (100X) (0-2/hpf); Reactive Lymphocytes 1 % (0-10)
[2023-02-02 16:37] LABS: Bacteria/HPF 4+ HPF (None Seen); Bilirubin Negative (Negative); Blood, Urine 1+ (Negative); Clarity Extra Turbid (Clear); Glucose, Urine (Dipstick) Normal (Negative); Ketone, Urine 20 mg/dL (Negative); Leukocyte 500 Leu/uL (Negative); Nitrite Negative (Negative); Protein, Urine (Dipstick) 200 mg/dL (Neg-Trace); Specific Gravity, Urine 1.024 (1.002-1.036); Squamous Epithelial 0-3 HPF (0-3); Urobilinogen Normal mg/dL (Less than 2); WBC/HPF Greater than 50 HPF (0-3)
[2023-02-02] MEDS ORDERED: cefTRIAXone\\ROCEPHIN 1 GM VIAL ONE (17:42)
[2023-02-02] MEDS ORDERED: Vancomycin 1 GM/200 ML (FROZEN) BAG ONE (17:42)
[2023-02-02] MEDS ORDERED: Ibuprofen 800 MG TAB ONE (19:04)
[2023-02-02] MEDS ORDERED: Acetaminophen 325 MG TAB PO PRN (20:15)
[2023-02-02] MEDS ORDERED: Ondansetron ODT 4 MG TAB SL PRN (20:15)
[2023-02-02] MEDS ORDERED: Ondansetron PF 4 MG/2 ML Vial IVP PRN (20:15)
[2023-02-02] MEDS ORDERED: Sodium Chloride 0.9% 1,000 ML IV SCH (20:15)
[2023-02-02] MEDS ORDERED: HYDROcodone/Acetaminophen 7.5/325 mg Tablet PO PRN (20:58)
[2023-02-02] MEDS: Sodium Chloride 0.9% 1,000 ML IV SCH (21:25)
[2023-02-02] MEDS ORDERED: Ibuprofen 200 MG TAB PO PRN (21:50)
[2023-02-02] MEDS ORDERED: Acetaminophen 500 MG TAB PO SCH (22:00)
[2023-02-03 00:06] VITALS: BMI 27.3
[2023-02-03 00:35] LABS: SARS-CoV-2 NAA Rapid Test Not Detected (NotDetected)
[2023-02-03] MEDS ORDERED: Vancomycin 1 GM in Premix Bag 1 BAG IVPB SCH (01:00)
[2023-02-03] MEDS: Sodium Chloride 0.9% 1,000 ML IV SCH ×2 (05:25→15:05)
[2023-02-03] MEDS: cefTRIAXone\\ROCEPHIN 2 GM in Sodium Chloride 0.9% 100 ML IVPB SCH (05:27)
[2023-02-03] MEDS: Acetaminophen 500 MG TAB PO PRN ×3 (06:48→19:53)
[2023-02-03 07:13] LABS: Anion Gap 14 mmol/L (10-20); BUN (Urea Nitrogen) 10 mg/dL (8.4-25.7); Calc. Creatinine Clearance 146 mL/min (70-130); Calcium 8.2 mg/dL (7.8-10.44); Carbon Dioxide 22 mmol/L (23-31); Chloride 103 mmol/L (98-107); Estimated GFR 103; Glucose 123 mg/dL (80-115); Sodium 135 mmol/L (136-145)
[2023-02-03 07:39] LABS: #Eosinphils 0.1 thou/uL (0.0-0.7); #Lymphocytes 0.5 thou/uL (1.20-3.40); #Monocytes 0.9 thou/uL (0.11-0.59); #Neutrophils 6.1 thou/uL (1.40-6.50); %Basophils 0.1 % (0.0-1.0); %Eosinophils 1.7 % (0.0-10.0); %Lymphocytes 7.1 % (21.0-51.0); %Monocytes 11.1 % (0.0-10.0); Hemoglobin 13.2 g/dL (14.0-18.0); Mean Corpuscular HGB CONC 34.6 g/dL (32.0-36.0); Mean Corpuscular Hemoglobin 32.9 pg (27.0-31.0); Mean Corpuscular Volume 95.2 fl (78.0-98.0); Mean Platelet Volume 7.6 fL (7.4-10.4); Platelet Count 70 10x3/uL (130-400); RBC Distribution Width 13.7 % (11.5-14.5); Red Blood Cell (RBC) Count 4.01 mill/uL (4.70-6.10); White Blood Cell (WBC) Count 7.7 10x3/uL (4.8-10.8)
[2023-02-03 07:40] LABS: MDiff Complete? YES; Ovalocytes SLIGHT = 2-5 cells (100X) (0-1/hpf); Platelet Morphology Comment Appears Decreased; Polychromasia SLIGHT = 2-3 cells (100X) (0-2/hpf)
[2023-02-03] MEDS ORDERED: Iopamidol-370 76% 500 ML 1 ML ONE (11:26)
[2023-02-03] MEDS: Vancomycin 1.5 GRAM/300 ML BAG 1.5 GM in Premix Bag 1 BAG IVPB SCH (13:30)
[2023-02-03] MEDS: Tamsulosin HCl 0.4 MG CAP PO SCH (17:54)
[2023-02-03] MEDS: Flecainide 50 MG TAB PO SCH (19:52)
[2023-02-03] MEDS: Carvedilol 6.25 MG TAB PO SCH (19:54)
[2023-02-04] MEDS: Vancomycin 1.5 GRAM/300 ML BAG 1.5 GM in Premix Bag 1 BAG IVPB SCH ×2 (00:46→15:23)
[2023-02-04] MEDS: Acetaminophen 500 MG TAB PO PRN ×2 (05:01→17:29)
[2023-02-04] MEDS: cefTRIAXone\\ROCEPHIN 2 GM in Sodium Chloride 0.9% 100 ML IVPB SCH (05:02)
[2023-02-04 07:23] LABS: Anion Gap 14 mmol/L (10-20); BUN (Urea Nitrogen) 10 mg/dL (8.4-25.7); Calc. Creatinine Clearance 158 mL/min (70-130); Calcium 8.4 mg/dL (7.8-10.44); Carbon Dioxide 21 mmol/L (23-31); Chloride 105 mmol/L (98-107); Estimated GFR 105; Glucose 101 mg/dL (80-115); Potassium 3.5 mmol/L (3.5-5.1); Sodium 136 mmol/L (136-145)
[2023-02-04 08:15] LABS: Hemoglobin 12.6 g/dL (14.0-18.0); Mean Corpuscular HGB CONC 34.3 g/dL (32.0-36.0); Mean Corpuscular Hemoglobin 32.7 pg (27.0-31.0); Mean Corpuscular Volume 95.5 fl (78.0-98.0); Mean Platelet Volume 8.5 fL (7.4-10.4); Platelet Count 64 10x3/uL (130-400); RBC Distribution Width 13.6 % (11.5-14.5); Red Blood Cell (RBC) Count 3.84 mill/uL (4.70-6.10); White Blood Cell (WBC) Count 5.6 10x3/uL (4.8-10.8)
[2023-02-04] MEDS: Flecainide 50 MG TAB PO SCH ×2 (08:48→20:13)
[2023-02-04] MEDS: Carvedilol 6.25 MG TAB PO SCH ×2 (08:48→20:12)
[2023-02-04 08:50] LABS: Band 3 % (5-11); Eosinophils 8 % (0-10); Lymphocytes 4 % (21-51); MDiff Complete? YES; Metamyelocyte 1 % (0-0); Monocytes 6 % (0-10); Neutrophil 78 % (42-75); Platelet Morphology Comment Appears Decreased; RBC Morphology Normal
[2023-02-04 12:23] LABS: Vancomycin, Trough 8.9 ug/mL
[2023-02-04] MEDS ORDERED: Vancomycin 1.5 GRAM/300 ML BAG 1.5 GM in Premix Bag 1 BAG IVPB SCH (13:00)
[2023-02-04] MEDS: Tamsulosin HCl 0.4 MG CAP PO SCH (17:29)
[2023-02-04] MEDS: Cefepime 2 GM in Sodium Chloride 0.9% 100 ML IVPB SCH (20:13)
[2023-02-05] MEDS: Vancomycin 1.5 GRAM/300 ML BAG 1.5 GM in Premix Bag 1 BAG IVPB SCH (02:44)
[2023-02-05] MEDS: Carvedilol 6.25 MG TAB PO SCH (08:26)
[2023-02-05] MEDS: Cefepime 2 GM in Sodium Chloride 0.9% 100 ML IVPB SCH (08:27)
[2023-02-05] MEDS: Flecainide 50 MG TAB PO SCH (08:27)
[2023-02-05 08:42] LABS: Hemoglobin 13.3 g/dL (14.0-18.0); Mean Corpuscular HGB CONC 33.5 g/dL (32.0-36.0); Mean Corpuscular Volume 95.4 fl (78.0-98.0); RBC Distribution Width 13.5 % (11.5-14.5); Red Blood Cell (RBC) Count 4.15 mill/uL (4.70-6.10)
[2023-02-05 08:54] LABS: Anion Gap 11 mmol/L (10-20); BUN (Urea Nitrogen) 11 mg/dL (8.4-25.7); Calc. Creatinine Clearance 140 mL/min (70-130); Calcium 8.9 mg/dL (7.8-10.44); Carbon Dioxide 28 mmol/L (23-31); Chloride 103 mmol/L (98-107); Estimated GFR 101; Glucose 97 mg/dL (80-115); Magnesium 1.6 mg/dL (1.6-2.6); Potassium 3.7 mmol/L (3.5-5.1); Sodium 138 mmol/L (136-145)
[2023-02-05 09:27] LABS: Band 2 % (5-11); Eosinophils 4 % (0-10); Lymphocytes 15 % (21-51); MDiff Complete? YES; Mean Platelet Volume 7.9 fL (7.4-10.4); Monocytes 19 % (0-10); Neutrophil 60 % (42-75); Platelet Count 104 10x3/uL (130-400); Platelet Morphology Comment Appears Decreased; White Blood Cell (WBC) Count 4.6 10x3/uL (4.8-10.8)
[2023-02-05 12:12] VITALS: BP 139/76; TEMP 99.2
[2023-02-05] MEDS ORDERED: Ciprofloxacin 500 MG TAB PO SCH (14:00)
[2023-02-05] MEDS ORDERED: Rivaroxaban 10 MG TAB PO SCH (14:00)
[2023-02-06] MEDS ORDERED: Ciprofloxacin 500 MG TAB PO SCH (06:00)
[2023-02-06] MEDS ORDERED: Rivaroxaban 10 MG TAB PO SCH (09:00)
== END 2023-02-05 16:22 | disposition home or self-care (01) | DRG 872 ==
LOC: ERS 14:02 → T4-B 20:04 → OBSVTOIN 02-03 13:50
PROVIDERS: ADMIT Student in an Organized Health Care Education/Training Program; ATTEND Family Medicine
DX: A41.59 Other Gram-negative sepsis (principal); I50.22 Chronic systolic (congestive) heart failure; N30.00 Acute cystitis without hematuria; Z66 Do not resuscitate; Z20.822 Contact with and (suspected) exposure to COVID-19; I48.91 Unspecified atrial fibrillation; I11.0 Hypertensive heart disease with heart failure; N40.1 Benign prostatic hyperplasia with lower urinary tract symptoms; R35.0 Frequency of micturition; Z79.01 Long term (current) use of anticoagulants; Z88.8 Allergy status to other drugs, medicaments and biological substances; Z79.899 Other long term (current) drug therapy; D69.6 Thrombocytopenia, unspecified
CPT/HCPCS: 36415; 74178; 80048; 80053; 80202; 81003; 81015; 83605; 83735; 84153; 85025; 86140; 87040; 87077; 87086; 87186; 93005; 96376; G0378; J0692; J0696; J3370; J3370-JW; J3490; J7050; U0002

== ENCOUNTER → 2023-02-14 | Outpatient (CLI) | payer MEDICARE | LOC: PET 08:00 | PROVIDERS: ATTEND Radiology Radiation Oncology | DX: C43.4 Malignant melanoma of scalp and neck (principal) | CPT/HCPCS: 78816; A9552 ==

== ENCOUNTER 2023-05-26 09:30 | Outpatient (CLI) | payer MEDICARE | END 2023-05-26 09:31 | disposition home or self-care (01) | LOC: PET 09:30 | PROVIDERS: ATTEND Internal Medicine Hematology & Oncology | DX: C09.0 Malignant neoplasm of tonsillar fossa (principal); C43.4 Malignant melanoma of scalp and neck | CPT/HCPCS: 78816; A9552 ==

== ENCOUNTER 2023-08-28 11:40 | Inpatient (IN) | payer MEDICARE, OTHER ==
[2023-08-28 12:19] VITALS: BMI 30.5
[2023-08-28] MEDS ORDERED: Acetaminophen 325 MG TAB PO PRN (12:27)
[2023-08-28] MEDS ORDERED: Ondansetron ODT 4 MG TAB PO PRN (12:27)
[2023-08-28 12:57] LABS: Anion Gap 13 mmol/L (10-20); BUN (Urea Nitrogen) 10 mg/dL (8.4-25.7); Calc. Creatinine Clearance 135 mL/min (70-130); Calcium 9.1 mg/dL (7.8-10.44); Carbon Dioxide 25 mmol/L (23-31); Chloride 104 mmol/L (98-107); Estimated GFR 97; Glucose 112 mg/dL (80-115); Magnesium 1.9 mg/dL (1.6-2.6); Potassium 4.1 mmol/L (3.5-5.1); Sodium 138 mmol/L (136-145)
[2023-08-28] MEDS: Dofetilide 0.125 MG CAP PO SCH (13:21)
[2023-08-28] MEDS: Sucralfate 1 GM TAB PO SCH ×2 (16:21→20:04)
[2023-08-28] MEDS: Rivaroxaban 10 MG TAB PO SCH (17:35)
[2023-08-28] MEDS ORDERED: Dofetilide 0.125 MG CAP PO SCH (21:00)
[2023-08-29] MEDS: Dofetilide 0.125 MG CAP PO SCH ×2 (01:03→11:03)
[2023-08-29 05:32] LABS: #Basophils 0.1 thou/uL (0.0-0.2); #Eosinphils 0.5 thou/uL (0.0-0.7); #Monocytes 0.5 thou/uL (0.11-0.59); #Neutrophils 2.5 thou/uL (1.40-6.50); %Basophils 1.2 % (0.0-1.0); %Eosinophils 10.7 % (0.0-10.0); %Lymphocytes 17.8 % (21.0-51.0); %Monocytes 11.6 % (0.0-10.0); %Neutrophils 58.2 % (42.0-75.0); Hematocrit 40.8 % (42.0-52.0); Mean Corpuscular HGB CONC 34.3 g/dL (32.0-36.0); Mean Corpuscular Hemoglobin 32.7 pg (27.0-31.0); Mean Corpuscular Volume 95.3 fl (78.0-98.0); Mean Platelet Volume 9.2 fL (7.4-10.4); Platelet Count 148 10x3/uL (130-400); RBC Distribution Width 13.2 % (11.5-14.5); Red Blood Cell (RBC) Count 4.28 mill/uL (4.70-6.10); White Blood Cell (WBC) Count 4.2 10x3/uL (4.8-10.8)
[2023-08-29 05:59] LABS: Anion Gap 14 mmol/L (10-20); BUN (Urea Nitrogen) 10 mg/dL (8.4-25.7); Calc. Creatinine Clearance 137 mL/min (70-130); Calcium 9.3 mg/dL (7.8-10.44); Carbon Dioxide 26 mmol/L (23-31); Chloride 104 mmol/L (98-107); Estimated GFR 97; Glucose 97 mg/dL (80-115); Potassium 3.8 mmol/L (3.5-5.1); Sodium 140 mmol/L (136-145)
[2023-08-29] MEDS: Sucralfate 1 GM TAB PO SCH ×4 (07:37→20:18)
[2023-08-29] MEDS ORDERED: Tamsulosin HCl 0.4 MG CAP PO SCH ×2 (15:30→18:30)
[2023-08-29] MEDS: Rivaroxaban 10 MG TAB PO SCH (16:20)
[2023-08-30] MEDS: Dofetilide 0.125 MG CAP PO SCH ×2 (00:47→11:10)
[2023-08-30] MEDS: Sucralfate 1 GM TAB PO SCH ×3 (08:34→16:14)
[2023-08-30 10:22] LABS: Anion Gap 13 mmol/L (10-20); BUN (Urea Nitrogen) 11 mg/dL (8.4-25.7); Calc. Creatinine Clearance 131 mL/min (70-130); Calcium 9.7 mg/dL (7.8-10.44); Carbon Dioxide 29 mmol/L (23-31); Chloride 101 mmol/L (98-107); Estimated GFR 96; Glucose 120 mg/dL (80-115); Magnesium 1.8 mg/dL (1.6-2.6); Potassium 3.9 mmol/L (3.5-5.1); Sodium 139 mmol/L (136-145)
[2023-08-30] MEDS ORDERED: Iopamidol 370 76% 100 ML VIAL ONE (11:20)
[2023-08-30 16:00] VITALS: BP 182/98; TEMP 97.7
[2023-08-30] MEDS: Rivaroxaban 10 MG TAB PO SCH (16:26)
[2023-08-30] MEDS ORDERED: Tamsulosin HCl 0.4 MG CAP PO SCH (18:30)
== END 2023-08-30 16:52 | disposition home or self-care (01) | DRG 309 ==
LOC: 2NO 11:41
PROVIDERS: ADMIT Family Medicine; ATTEND Internal Medicine
DX: I48.92 Unspecified atrial flutter (principal); I50.22 Chronic systolic (congestive) heart failure; N40.0 Benign prostatic hyperplasia without lower urinary tract symptoms; D72.819 Decreased white blood cell count, unspecified; I48.19 Other persistent atrial fibrillation; I42.8 Other cardiomyopathies; K21.9 Gastro-esophageal reflux disease without esophagitis; I11.0 Hypertensive heart disease with heart failure; Z98.890 Other specified postprocedural states; Z79.01 Long term (current) use of anticoagulants; Z79.899 Other long term (current) drug therapy; Z88.8 Allergy status to other drugs, medicaments and biological substances; Z82.49 Family history of ischemic heart disease and other diseases of the circulatory system; Z82.3 Family history of stroke; Z87.891 Personal history of nicotine dependence; Z85.820 Personal history of malignant melanoma of skin
CPT/HCPCS: 36415; 70491; 80048; 83735; 85025; 93005; 93010; J8499

== ENCOUNTER 2023-09-28 08:45 | Outpatient (CLI) | payer MEDICARE | END 2023-09-28 08:46 | LOC: PET 08:45 | PROVIDERS: ATTEND Internal Medicine Hematology & Oncology | DX: C09.0 Malignant neoplasm of tonsillar fossa (principal); C43.4 Malignant melanoma of scalp and neck | CPT/HCPCS: 78816; A9552 ==

== ENCOUNTER 2024-08-06 08:00 | Outpatient (CLI) | payer MEDICARE | END 2024-08-06 08:01 | disposition home or self-care (01) | LOC: PET 08:00 | PROVIDERS: ATTEND Internal Medicine Hematology & Oncology | DX: C43.4 Malignant melanoma of scalp and neck (principal); C09.0 Malignant neoplasm of tonsillar fossa; D72.818 Other decreased white blood cell count; R97.20 Elevated prostate specific antigen [PSA]; D69.59 Other secondary thrombocytopenia | CPT/HCPCS: 78816; A9552 ==

== ENCOUNTER 2024-12-17 09:25 | Outpatient (CLI) | payer MEDICARE ==
[2024-12-17 10:55] LABS: #Basophils 0.06 10x3/uL (0.0-0.2); %Basophils 1.2 % (0.0-1.0); %Eosinophils 3.4 % (0.0-10.0); %Lymphocytes 13.7 % (21.0-51.0); %Monocytes 9.9 % (0.0-10.0); %Neutrophils 71.4 % (42.0-75.0); Hematocrit 40.7 % (42.0-52.0); Hemoglobin 14.4 g/dL (14.0-18.0); Mean Corpuscular HGB CONC 35.4 g/dL (32.0-36.0); Mean Corpuscular Hemoglobin 32.4 pg (27.0-31.0); Mean Corpuscular Volume 91.7 fL (78.0-98.0); Mean Platelet Volume 9.1 fL (7.4-10.4); Platelet Count 142 10x3/uL (130-400); RBC Distribution Width 12.8 % (11.5-14.5); Red Blood Cell (RBC) Count 4.44 mill/uL (4.70-6.10)
[2024-12-17 11:20] LABS: Anion Gap 13 mmol/L (10-20); BUN (Urea Nitrogen) 8 mg/dL (8.4-25.7); Calc. Creatinine Clearance 0 mL/min (70-130); Calcium 8.8 mg/dL (7.8-10.44); Carbon Dioxide 27 mmol/L (23-31); Chloride 104 mmol/L (98-107); Estimated GFR 96; Glucose 96 mg/dL (80-115); Potassium 3.5 mmol/L (3.5-5.1); Sodium 140 mmol/L (136-145)
== END 2024-12-17 09:26 | disposition home or self-care (01) ==
LOC: LABBT 09:25
PROVIDERS: ATTEND Surgery
DX: Z01.818 Encounter for other preprocedural examination (principal); K40.90 Unilateral inguinal hernia, without obstruction or gangrene, not specified as recurrent; K42.9 Umbilical hernia without obstruction or gangrene
CPT/HCPCS: 80048; 85025; 93005; 93010

== ENCOUNTER 2025-07-31 13:15 | Outpatient (CLI) | payer MEDICARE | END 2025-07-31 13:16 | disposition home or self-care (01) | LOC: PET 13:15 | PROVIDERS: ATTEND Internal Medicine Hematology & Oncology | DX: R97.20 Elevated prostate specific antigen [PSA] (principal); C09.0 Malignant neoplasm of tonsillar fossa; D72.818 Other decreased white blood cell count; D69.59 Other secondary thrombocytopenia; C43.4 Malignant melanoma of scalp and neck | CPT/HCPCS: 78816; A9552 ==

== ENCOUNTER 2025-08-25 10:37 | Outpatient (CLI) | payer MEDICARE ==
[2025-08-25 12:32] LABS: #Basophils 0.04 10x3/uL (0.0-0.2); #Eosinophils 0.20 10x3/uL (0.0-0.7); #Monocytes 0.57 10x3/uL (0.11-0.59); #Neutrophils 3.33 10x3/uL (1.40-6.50); %Basophils 0.8 % (0.0-1.0); %Eosinophils 4.0 % (0.0-10.0); %Lymphocytes 17.1 % (21.0-51.0); %Monocytes 11.4 % (0.0-10.0); %Neutrophils 66.3 % (42.0-75.0); Hematocrit 41.7 % (42.0-52.0); Hemoglobin 14.5 g/dL (14.0-18.0); Mean Corpuscular Hemoglobin 32.9 pg (27.0-31.0); Mean Corpuscular Volume 94.6 fL (78.0-98.0); Platelet Count 156 10x3/uL (130-400); Red Blood Cell (RBC) Count 4.41 mill/uL (4.70-6.10); White Blood Cell (WBC) Count 5.02 10x3/uL (4.8-10.8)
[2025-08-25 12:53] LABS: Anion Gap 17 mmol/L (10-20); BUN (Urea Nitrogen) 7 mg/dL (8.4-25.7); Calc. Creatinine Clearance 0 mL/min (70-130); Calcium 9.6 mg/dL (7.8-10.44); Carbon Dioxide 24 mmol/L (23-31); Chloride 101 mmol/L (98-107); Glucose 108 mg/dL (80-115); Potassium 4.1 mmol/L (3.5-5.1); Sodium 138 mmol/L (136-145)
== END 2025-08-25 10:38 | disposition home or self-care (01) ==
LOC: LABBT 10:37
PROVIDERS: ATTEND Surgery
DX: Z01.818 Encounter for other preprocedural examination (principal); K40.91 Unilateral inguinal hernia, without obstruction or gangrene, recurrent
CPT/HCPCS: 80048; 85025; 93005; 93010

== ENCOUNTER 2025-08-26 08:57 | Day surgery (SDC) | payer MEDICARE ==
[2025-08-25 11:02] VITALS: BMI 31.3
[2025-08-26] MEDS ORDERED: Bupivacaine 0.25% HCL 30 ML VIAL ONE (10:55)
[2025-08-26] MEDS ORDERED: PROPOFOL 20 ML ONE ×2 (11:19→13:03)
[2025-08-26] MEDS ORDERED: Lidocaine 1% PF 5 ML VIAL ONE (11:22)
[2025-08-26] MEDS ORDERED: fentaNYL PF 100 MCG/2 ML SYRINGE ONE ×2 (11:46→13:38)
[2025-08-26] MEDS ORDERED: CEFAZOLIN 2 GM VIAL ONE (12:05)
[2025-08-26] MEDS ORDERED: Ondansetron PF 4 MG/2 ML Vial ONE (12:25)
[2025-08-26] MEDS ORDERED: PHENYLEPHRINE-NS 100 MCG/ML 10 ML SYRINGE ONE (12:26)
[2025-08-26] MEDS ORDERED: HYDROmorphone 0.5 MG/0.5 ML SYRINGE ONE (14:14)
[2025-08-26] MEDS ORDERED: HYDROcodone/Acetaminophen 5/325 mg Tablet ONE (15:40)
== END 2025-08-26 16:01 | disposition home or self-care (01) ==
LOC: SDC 08:57
PROVIDERS: ATTEND Surgery
PROC: 0YU60JZ Supplement Left Inguinal Region with Synthetic Substitute, Open Approach (ICD-10-PCS; principal; 2025-08-26)
DX: K40.91 Unilateral inguinal hernia, without obstruction or gangrene, recurrent (principal); Z87.891 Personal history of nicotine dependence; Z90.89 Acquired absence of other organs; Z98.890 Other specified postprocedural states; Z88.8 Allergy status to other drugs, medicaments and biological substances; Z88.5 Allergy status to narcotic agent
CPT/HCPCS: 49520; A4306; C1781; J0169; J0665 ×2; J1171; J2704